=== PATIENT | female | born 1975 | race Caucasian/White ===

== ENCOUNTER 2022-04-19 18:14 | Emergency (ER) | payer OTHER ==
[2022-04-19 18:18] VITALS: BP 151/88; PULSE 64; RESP 18; TEMP 97.8; BMI 27.3
[2022-04-19] MEDS ORDERED: IBUPROFEN 600 MG TABLET (FP) PO ONE ×2 (19:47→19:49)
== END 2022-04-19 20:12 | disposition home or self-care (01) ==
LOC: JERFT 18:14
DX: S16.1XXA Strain of muscle, fascia and tendon at neck level, initial encounter (principal); M54.50 Low back pain, unspecified; V49.40XA Driver injured in collision with unspecified motor vehicles in traffic accident, initial encounter
CPT/HCPCS: 99284-25

== ENCOUNTER 2022-04-26 14:43 | Emergency (ER) | payer OTHER ==
[2022-04-26 15:10] VITALS: BP 123/70; PULSE 63; RESP 18; TEMP 98.3; BMI 28.3
[2022-04-26] MEDS ORDERED: KETOROLAC TROMETHAMINE 15 MG/ML VIAL IM ONE (18:23)
[2022-04-26] MEDS ORDERED: KETOROLAC TROMETHAMINE 30 MG/1 ML VIAL IM ONE (18:24)
[2022-04-26] MEDS ORDERED: KETOROLAC TROMETHAMINE 30 MG/1 ML VIAL ONE (18:25)
== END 2022-04-26 19:07 | disposition home or self-care (01) ==
LOC: JER 14:43 → JERFT 14:43
PROC: 3E0233Z Introduction of Anti-inflammatory into Muscle, Percutaneous Approach (ICD-10-PCS; principal; 2022-04-26)
DX: M54.50 Low back pain, unspecified (principal); M54.2 Cervicalgia; V43.52XA Car driver injured in collision with other type car in traffic accident, initial encounter
CPT/HCPCS: 70450-TC; 72125-TC; 99284-25

== ENCOUNTER 2023-03-08 05:36 | Day surgery (SDC) | payer OTHER ==
[2023-03-07 12:05] VITALS: BMI 29.2
[2023-03-08 14:00] VITALS: TEMP 98
[2023-03-08 14:04] VITALS: BP 98/58; PULSE 55; RESP 19
== END 2023-03-08 14:56 | disposition home or self-care (01) ==
LOC: JASU-ENDO 05:36
PROVIDERS: ATTEND Student in an Organized Health Care Education/Training Program
PROC: 0DJD8ZZ Inspection of Lower Intestinal Tract, Via Natural or Artificial Opening Endoscopic (ICD-10-PCS; principal; 2023-03-08 13:00)
DX: Z12.11 Encounter for screening for malignant neoplasm of colon (principal); K64.8 Other hemorrhoids
CPT/HCPCS: 81025